=== PATIENT | female | born 1945 | race Caucasian/White ===

== ENCOUNTER → 2016-12-02 | Outpatient (CLI) | payer MEDICARE, BC | END | disposition home or self-care (01) | LOC: MMGSC 13:28 | PROVIDERS: ATTEND Family Medicine | DX: N39.0 Urinary tract infection, site not specified (principal) | CPT/HCPCS: 87077; 87086; 87186; 99214 ==

== ENCOUNTER → 2017-12-09 | Outpatient (CLI) | payer MEDICARE, BC ==
--- NOTE | 2017-12-16 20:23 | ENG ---
ELECTRONYSTAGMOGRAM REPORT VIDEO-ASSISTED ELECTRONYSTAGMOGRAM: VNG INDICATIONS: Dizziness and vertigo beginning September 24, sudden onset, getting worse, and comes in spells for 1 to 4 hours 2 to 3 times a month. Dizziness can be precipitated by rolling over in bed, right or left, going from lying to a seated position, turning head left or right, bending over or head down position, moving the head. The patient denies any hearing loss, tinnitus, pain, fullness or pressure in the ears. VNG FINDINGS: Saccades shows intact peak velocities, accuracies and latencies. Gaze with fixation shows no nystagmus in any of the directions of gaze, including centrally with vision denied. Tracking shows mild breakups. Optokinetic nystagmus shows no significant asymmetry of more than 50%. Static position testing in 4 different positions with both eyes opened and with vision denied shows no nystagmus. Right side and left side could not be done due to low back problems. Migdalia-Hallpike maneuvers could not be done due to the low back problems. Caloric testing shows 11% unilateral caloric weakness in the left ear, which is within normal limits. VNG IMPRESSION: This VNG shows mild breakups in tracking which may favor central nervous system dysfunction. Other parameters of this test are within normal limits. No evidence for vestibulopathy. MMODL / IJN: [id number] /
== END | disposition home or self-care (01) ==
LOC: NEUROMAIN 09:01
PROVIDERS: ATTEND Otolaryngology
DX: R93.8 Abnormal findings on diagnostic imaging of other specified body structures (principal); R42 Dizziness and giddiness
CPT/HCPCS: 92537; 92540

== ENCOUNTER → 2017-12-22 | Outpatient (CLI) | payer MEDICARE, BC | END | disposition home or self-care (01) | LOC: MMGSC 16:35 | PROVIDERS: ATTEND Family Medicine | DX: N39.0 Urinary tract infection, site not specified (principal) | CPT/HCPCS: 87077; 87086; 87186 ==

== ENCOUNTER → 2017-12-28 | Outpatient (CLI) | payer MEDICARE, BC ==
--- NOTE | 2017-12-29 01:23 | MR ---
EXAMINATION TYPE: MR brain wo/w con DATE OF EXAM: 12/28/2017 COMPARISON: NONE HISTORY: Vertigo, dysarthria TECHNIQUE: Multiplanar, multisequence images of the brain and brainstem is performed without and with IV contras t, utilizing 7 mL intravenous Gadavist . FINDINGS: There is mild diffuse cerebral cortical atrophy. There is no mass effect nor midline shift. There is no sign of intracranial hemorrhage. Brainstem is intact. There are a few scattered high sig nal foci in both hemispheres at the florian-white matter junction. These measure up to 5 mm. Total numbe r is approximately 5. Ventricles of normal size. The corpus callosum is intact. Sella turcica appears normal. The contrast images show no pathologic enhancement. There is no evidence of a cortical infar ct. IMPRESSION: Mild atrophy. Scattered white matter high signal foci are nonspecific and could relate to chronic small vessel ischemia. No evidence of cortical infarct.
== END | disposition home or self-care (01) ==
LOC: RADMRIMAIN 19:59
PROVIDERS: ATTEND Otolaryngology
DX: G31.1 Senile degeneration of brain, not elsewhere classified (principal); R93.0 Abnormal findings on diagnostic imaging of skull and head, not elsewhere classified
CPT/HCPCS: 70553; A9581

== ENCOUNTER → 2017-12-28 | Outpatient (CLI) | payer MEDICARE, BC | END | disposition home or self-care (01) | LOC: LABWHC1 11:54 | PROVIDERS: ATTEND Otolaryngology | DX: R42 Dizziness and giddiness (principal); G45.9 Transient cerebral ischemic attack, unspecified | CPT/HCPCS: 36415; 82565 ==

== ENCOUNTER → 2018-03-15 | Outpatient (CLI) | payer MEDICARE, BC ==
[2018-03-15 11:55] LABS: HCT 42.4 % (34.0-46.0); HGB 14.9 gm/dL (11.4-16.0); MCH 33.7 pg (25.0-35.0); MCHC 35.1 g/dL (31.0-37.0); Mean Platelet Volume 6.9; Platelet Count 267 k/uL (150-450); RBC 4.41 m/uL (3.80-5.40); RDW 12.4 % (11.5-15.5); WBC 4.5 k/uL (3.8-10.6)
[2018-03-15 12:05] LABS: Albumin 4.1 g/dL (3.5-5.0); Potassium 5.3 mmol/L (3.5-5.1); Total Bilirubin 0.7 mg/dL (0.2-1.3); Total Protein 6.4 g/dL (6.3-8.2)
--- NOTE | 2018-03-15 14:24 | BD ---
EXAMINATION TYPE: Axial Bone Density DATE OF EXAM: 03/15/2018 COMPARISON: 2014 CLINICAL HISTORY: post menopausal. Osteoporosis screening. Height: 5'2 Weight: 158 FRAX RISK QUESTIONS: Secondary Osteoporosis: RISK FACTORS HISTORY OF: Postmenopausal woman: y MEDICATIONS: Additional Medications: Additional History: EXAM MEASUREMENTS: Bone mineral densitometry was performed using the [employer] System. Bone mineral density as measured about the Lumbar spine is: ----- L1-L4(G/cm2): 1.295 T Score Values are as follows: ----- L2: 0.0 ----- L3: 0.7 ----- L4: 2.2 ----- L1-L4: 1.0 Bone mineral density has: Decreased -0.4% since study of: 09/18/2014 Bone mineral density about the R hip (g/cm2): 0.938 Bone mineral density about the L hip (g/cm2): 0.896 T Score values are as follows: -----R Neck: -0.7 -----L Neck: -1.1 -----R Total: 0.7 -----L Total: -0.2 Bone mineral density has: Decreased -4.0% since study of: 09/08/2014 IMPRESSION: Osteopenia (T Score between -2.5 and -1) with regards to the left femur. There is slightly increased risk of fracture and the patient may be considered for treatment. Re-Screen 2-5 years. NOTE: T-SCORE=SD OF THE YOUNG ADULT MEAN.
[2018-03-15 17:23] LABS: Iron Saturation 42.66 (12.00-45.00)
[2018-03-15 17:34] LABS: Vitamin D 25 Hydroxy 25.2 ng/mL (30.0-100.0)
--- NOTE | 2018-03-16 14:03 | MM ---
Reason for exam: screening (asymptomatic). Last mammogram was performed 1 year and 10 months ago. History: Patient is postmenopausal. Cyst aspiration of the left breast. Physical Findings: A clinical breast exam by your physician is recommended on an annual basis and results should be correlated with mammographic findings. MG Screening Mammo w CAD Bilateral CC and MLO view(s) were taken. Prior study comparison: May 07, 2016, bilateral MG 3d screening mammo w/cad. September 18, 2014, bilateral MG screening mammo w CAD. There are scattered fibroglandular densities. Finding: There are typically benign round calcifications in both breasts. There is no discrete abnormality. ASSESSMENT: Benign, BI-RAD 2 RECOMMENDATION: Routine screening mammogram of both breasts in 1 year.
== END | disposition home or self-care (01) ==
LOC: RADMAMWWP 10:49
PROVIDERS: ATTEND Family Medicine
DX: Z12.31 Encounter for screening mammogram for malignant neoplasm of breast (principal); M85.852 Other specified disorders of bone density and structure, left thigh; Z00.00 Encounter for general adult medical examination without abnormal findings; R53.83 Other fatigue; Z78.0 Asymptomatic menopausal state
CPT/HCPCS: 77067; 77080; 80053; 80061; 82306; 82607; 82728; 83540; 83550; 84443; 85027

== ENCOUNTER → 2018-03-19 | Outpatient (CLI) | payer MEDICARE, BC | END | disposition home or self-care (01) | LOC: LABWHC1 10:24 | PROVIDERS: ATTEND Family Medicine | DX: E87.5 Hyperkalemia (principal) | CPT/HCPCS: 36415; 84132 ==

== ENCOUNTER → 2021-05-23 | Outpatient (CLI) | payer MEDICARE, BC ==
--- NOTE | 2021-05-24 12:32 | MM ---
Reason for exam: screening (asymptomatic). Last mammogram was performed 3 years and 2 months ago. History: Patient is postmenopausal. Cyst aspiration of the left breast. Taking estrogen beginning at age 74. Physical Findings: A clinical breast exam by your physician is recommended on an annual basis and results should be correlated with mammographic findings. MG 3D Screening Mammo W/Cad Bilateral CC and MLO view(s) were taken. Prior study comparison: March 15, 2018, bilateral MG screening mammo w CAD. May 07, 2016, bilateral MG 3d screening mammo w/cad. There are scattered fibroglandular densities. Finding: There is an equal density (isodense), circumscribed lobulated mass in the upper outer quadrant, middle position of the right breast. New finding since March 15, 2018 and May 07, 2016. ASSESSMENT: Incomplete: need additional imaging evaluation, BI-RAD 0 RECOMMENDATION: Special view mammogram of the right breast. If lesion persists on supplemental views, image directed ultrasound is recommended. [facility] will attempt to contact patient to return for supplemental views and ultrasound if indicated.
== END | disposition home or self-care (01) ==
LOC: RADMAMWWP 13:58
PROVIDERS: ATTEND Family Medicine
DX: Z12.31 Encounter for screening mammogram for malignant neoplasm of breast (principal); Z79.818 Long term (current) use of other agents affecting estrogen receptors and estrogen levels
CPT/HCPCS: 77063; 77067

== ENCOUNTER → 2021-06-12 | Outpatient (CLI) | payer MEDICARE, BC ==
--- NOTE | 2021-06-13 11:34 | MM ---
Reason for exam: additional evaluation requested from abnormal screening. Last mammogram was performed 1 month ago. History: Patient is postmenopausal. Cyst aspiration of the left breast. Taking estrogen beginning at age 74. Physical Findings: Nurse did not find any significant physical abnormalities on exam. MG 3D Work Up W/Cad RT Spot compression CC, spot compression MLO, and ML view(s) were taken of the right breast. Prior study comparison: May 23, 2021, bilateral MG 3d screening mammo w/cad. March 15, 2018, bilateral MG screening mammo w CAD. There are scattered fibroglandular densities. Finding: There is an intermediate concern, suspicious 4 mm equal density (isodense), circumscribed lobulated mass located 8 cm from the nipple in the upper outer quadrant, middle position of the right breast. New finding since May 23, 2021 and March 15, 2018. These results were verbally communicated with the patient and result sheet given to the patient on 06/12/21. ASSESSMENT: Incomplete: need additional imaging evaluation, BI-RAD 0 RECOMMENDATION: Ultrasound of the right breast.
--- NOTE | 2021-06-13 11:38 | USB ---
Reason for exam: additional evaluation requested from abnormal screening. History: Patient is postmenopausal. Cyst aspiration of the left breast. Taking estrogen beginning at age 74. US Breast Workup Limited RT Technologist: Molly López Right limited breast ultrasound including focal area of concern, retroareolar and axilla demonstrates a 0.9 x 0.4 x 0.4cm lesion at 9 o'clock biopsy recommended and a 0.7 x 0.5 x 0.4cm lymph node at 9 o'clock. These results were verbally communicated with the patient and result sheet given to the patient on 06/12/21. ASSESSMENT: Suspicious, BI-RAD 4 RECOMMENDATION: Ultrasound core biopsy of the right breast. Patient undecided on surgeon or plan of care. Information provided and patient to call to scheduled when decided. Patient is also traveling out of state for the next several week. PRELIMINARY REPORT CALLED AND FAXED TO DR. FORD ON 06/13/21.
== END | disposition home or self-care (01) ==
LOC: RADMAMWWP 13:55
PROVIDERS: ATTEND Family Medicine
DX: N63.11 Unspecified lump in the right breast, upper outer quadrant (principal)
CPT/HCPCS: 77065; 76642; G0279; 77061

== ENCOUNTER → 2021-08-08 | Day surgery (SDC) | payer MEDICARE, BC ==
[2021-08-08 12:07] VITALS: RESP 16
[2021-08-08 13:20] VITALS: BP 115/69; PULSE 78; TEMP 97.8
--- NOTE | 2021-08-08 13:35 | USB ---
EXAMINATION TYPE: US biopsy breast VAD RT, MG diagnostic mammo RT wo CAD DATE OF EXAM: 08/08/2021 CLINICAL HISTORY: R92.8 ABN MAMMO. TECHNIQUE: Ultrasound guided core biopsy of right 9:00 breast. COMPARISON: NONE FINDINGS: The procedure of ultrasound guided core biopsy was explained to the patient. Benefits, alt ernatives, and risks were discussed. An informed consent was then obtained. The patient was placed in supine positioning for imaging and for the procedure. The overlying skin w as prepped and draped in usual sterile fashion. Lidocaine buffered with bicarbonate was used as anes thetic into the skin and subcutaneous tissue up to area of concern in the right 9:00 breast. Under ultrasound guidance, a 12-gauge vacuum assisted biopsy gun device was used to obtain [address]. Following this, a biopsy clip was left in lesion. Postprocedural mammogram was obtained and d emonstrates appropriate clip deployment. The patient tolerated the procedure well without any immediate complication. The patient was kept in the radiology department for short stay after the procedure and then discharged home in stable condi tion. IMPRESSION: Successful, uncomplicated ultrasound guided core biopsy of area of concern in the right 9 :00 breast, full pathology results to follow.
== END ==
LOC: RADUSWWP 10:41
PROVIDERS: ATTEND Surgery
DX: C50.811 Malignant neoplasm of overlapping sites of right female breast (principal)
CPT/HCPCS: 77065; 19083; A4648; J2001; 88305; 88341; 88342

== ENCOUNTER → 2021-08-08 | Outpatient (CLI) | payer MEDICARE, BC ==
[2021-08-08 11:09] VITALS: BP 111/66; PULSE 80; RESP 18; TEMP 98.5
--- NOTE | 2021-08-08 11:38 | P.GSHP ---
History of Present Illness H&P Date: 08/08/21 Chief Complaint: Abnormal right breast mammogram and ultrasound Angelina is a 75-year-old white female who underwent a bilateral mammogram and 05/23/2021. This revealed a lobulated mass in the upper quadrant of the right breast. Additional views of the right breast were performed on . She subsequently underwent a right breast ultrasound which revealed a 0.9 x 0.4 cm lesion at 9:00 biopsy recommended and a 0.7 x 0.4 cm lymph node at 9:00. The recommendation was for the patient undergo an ultrasound-guided core biopsy of the right breast. She does not feel anything of concern in either breast. She has not had any biopsies or surgery on either breast. Does not have any nipple discharge or skin changes of concern. She has not had any recent trauma or infection in the breast. Nicotine: social smoker/ stopped years ago caffeine: 2 cups coffee/day chocolate: occasional Family history: none Hormonal history: Menarche: 8 M1, breast fed: yes, age at first : 20 menopause: 54 BCP: 1 year hormones: vaginal hormone cream< 1 year (used because of chronic UTI) Surgical History: tonsil/adenoid Abdominoplasty Medical history: chronic bladder infections Seasonal depression Social History: Nicotine: Negative Alcohol: Occasional Drugs: Negative - Constitutional Constitutional: Denies chills, Denies fever - EENT Eyes: denies blurred vision, denies pain Ears: deny: decreased hearing, tinnitus Ears, nose, mouth and throat: Denies headache, Denies sore throat - Breasts Breasts: bilateral: as per HPI - Cardiovascular Cardiovascular: Reports shortness of breath, Denies chest pain - Respiratory Respiratory: Denies cough, Denies 7 - Gastrointestinal Gastrointestinal: Denies abdominal pain, Denies diarrhea, Denies nausea, Denies vomiting - Genitourinary (Female) Genitourinary: Reports as per HPI - Menstruation Menstruation: Reports postmenopausal - Musculoskeletal Comment: Peripheral neuropathy - Integumentary Integumentary: Denies pruritus, Denies rash - Neurological Neurological: Denies numbness, Denies weakness - Psychiatric Psychiatric: Reports as per HPI, Reports depression - Endocrine Endocrine: Denies fatigue, Denies weight change - Hematologic/Lymphatic Comment: none - Allergic/Immunologic Comment: aspirin Past Medical History History of Any Multi-Drug Resistant Organisms: ESBL Date of last positivie culture/infection: 02/09/20 MDRO Source:: ESBL URINE Smoking Status: Never smoker Medications and Allergies Home Medications Medication Instructions Recorded Confirmed Type Ascorbic Acid [Vitamin C] 500 mg PO DAILY 08/08/21 08/08/21 History Cholecalciferol [Vitamin D3 (25 25 mcg PO DAILY 08/08/21 08/08/21 History Mcg = 1000 Iu)] Clobetasol Propionate/Emoll 1 applic TOPICAL DAILY PRN 08/08/21 08/08/21 History [Clobetasol Emulsion 0.05% Foam] Cyanocobalamin (Vitamin B-12) 1,000 mcg PO DAILY 08/08/21 08/08/21 History [Vitamin B-12] Estradiol Cream [Estrace Cream 0.05 gm VAGINAL Q7DAYS 08/08/21 08/08/21 History 0.01%] Ibuprofen 800 mg PO Q8H PRN 08/08/21 08/08/21 History Mirabegron [Myrbetriq] 25 mg PO DAILY 08/08/21 08/08/21 History Sertraline [Zoloft] 50 mg PO DAILY 08/08/21 08/08/21 History Trimethoprim [Trimpex] 100 mg PO DAILY 08/08/21 08/08/21 History Allergies Allergy/AdvReac Type Severity Reaction Status Date / Time aspirin Allergy Unknown Verified 06/12/21 14:51 Surgical - Exam Vital Signs Temp Pulse Resp BP Pulse Ox 98.5 F 80 18 111/66 98 08/08/21 11:06 08/08/21 11:06 08/08/21 11:06 08/08/21 11:06 08/08/21 11:06 BMI 29.6 - General no distress - Eyes normal ocular movement - ENT no hearing loss, no congestion - Neck trachea midline - Respiratory normal respiratory effort, clear to auscultation - Cardiovascular Rhythm: regular Heart Sounds: normal: S1, S2 - Abdomen Abdomen: soft - Integumentary normal turgor - Neurologic no disoriented, no combative - Musculoskeletal normal gait, normal posture - Psychiatric oriented to time, oriented to person, oriented to place, speech is normal, memory intact Breast Exam: BRA: 40C Inspection: bilateral grade 2 ptosis palpation: right breast: Multi-positional exam fibrocystic changes, no dominant masses or nodules of concern Right axilla: No adenopathy of concern Left breast: Multi-positional exam fibrocystic changes no dominant masses or nodules of concern Left axilla: No adenopathy of concern Results Mammogram and ultrasound reviewed with Dr. Griffith Assessment and Plan Assessment: Impression: 1. Abnormal right breast mammogram and ultrasound 2. Fibrocystic breast changes 3. Patient has been taking ibuprofen 800 stopped one day ago Plan: 1. Right breast ultrasound-guided core biopsy, I discussed with Dr. Griffith that the patient has been taking ibuprofen and he feels comfortable to proceed Risks: Risks include but are not limited to bleeding, infection, reaction to the anesthetic. The patient understand she is at increased risk for hematoma or bruising secondary to the ibuprofen and wishes to proceed. 2. Follow up next week for results CC: DR. Mcclelland
== END ==
LOC: WWCWWP 10:39
PROVIDERS: ATTEND Surgery
DX: N60.11 Diffuse cystic mastopathy of right breast (principal); F32.A Depression, unspecified; Z79.899 Other long term (current) drug therapy; Z88.6 Allergy status to analgesic agent; Z87.891 Personal history of nicotine dependence

== ENCOUNTER → 2021-08-15 | Outpatient (CLI) | payer MEDICARE, BC ==
[2021-08-15 11:29] VITALS: BP 128/75; PULSE 64; RESP 18; TEMP 98.3
--- NOTE | 2021-08-15 12:03 | P.PN ---
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 The lesion was 9mm in size. She tolerated the procedure without difficulty. Objective - Vital Signs Vital signs: Vital Signs Temp 98.3 F 08/15/21 11:27 Pulse 64 08/15/21 11:27 Resp 18 08/15/21 11:27 BP 128/75 08/15/21 11:27 Pulse Ox 96 08/15/21 11:27 Intake & Output 08/14/21 08/15/21 08/15/21 18:59 06:59 18:59 Weight 72.121 kg - Constitutional General appearance: Present: cooperative - EENT Eyes: Present: EOMI ENT: Present: hearing grossly normal - Neck Neck: Present: normal ROM - Respiratory Respiratory: bilateral: CTA - Cardiovascular Rhythm: regular Heart sounds: normal: S1, S2 - Gastrointestinal General gastrointestinal: Present: soft - Integumentary Integumentary Comment(s): Small nodule right posterior back approximately 1 cm in size subcutaneous tissue may be a sebaceous cyst Biopsy site right breast clean and dry mild ecchymosis no evidence of infection Assessment and Plan Assessment: Impression: 1. right breast invasive ductal cancer stage IA Plan: 1. will hold estrogen cream 2. breast MRI 3. present case at tumor board 4. appointment with radiation and medical oncology CC: Dr. [place]
== END | disposition home or self-care (01) ==
LOC: WWCWWP 11:17
PROVIDERS: ATTEND Surgery
DX: Z53.9 Procedure and treatment not carried out, unspecified reason (principal)

== ENCOUNTER → 2022-04-01 | Outpatient (CLI) | payer MEDICARE, BC ==
--- NOTE | 2022-04-01 13:27 | BD ---
EXAMINATION TYPE: Axial Bone Density DATE OF EXAM: 04/01/2022 COMPARISON: 03/15/2018 CLINICAL HISTORY: 76 years year old Female. ICD-10 CODE: Z79.890 Post menopausal w/HRT Height: 61 IN Weight: 156 LBS RISK FACTORS HISTORY OF: Active: YES Postmenopausal woman: AGE 55 Take estrogen and/or progesterone medications: 4 MONTHS MEDICATIONS: Additional Medications: ZOLOFT, IBUPROFEN, MYRBETRIQ, ESTRADIOL, ANASTROZOLE, ZINC, VIT C, VIT D Additional History: BREAST CANCER EXAM MEASUREMENTS: Bone mineral densitometry was performed using the [employer] System. Bone mineral density as measured about the Lumbar spine is: ----- L1-L4(G/cm2): 1.263 T Score Values are as follows: ----- L1: -0.7 ----- L2: -0.4 ----- L3: 1.6 ----- L4: 1.7 ----- L1-L4: 0.7 Bone mineral density has: Decreased -1.6% since study of: 03/15/2018 Bone mineral density about the R hip (g/cm2): 0.866 Bone mineral density about the L hip (g/cm2): 0.816 T Score values are as follows: -----R Neck: -1.2 -----L Neck: -1.6 -----R Total: 0.5 -----L Total: -0.5 Bone mineral density has: Decreased -3.5% since study of: 03/15/2018 FRAX%s: The graph provided illustrates a 12.4 chance for a major osteoporotic fx and a 2.8 chance for the hips probability for fx in 10 years time. IMPRESSION: Normal (Values between +1 and -1 indicate normal bone mass). Consider repeating this study in 5 year s or sooner if there is some new clinical indication. NOTE: T-SCORE=SD OF THE YOUNG ADULT MEAN.
== END | disposition home or self-care (01) ==
LOC: RADBDWWP 12:07
PROVIDERS: ATTEND Internal Medicine Hematology & Oncology
DX: Z79.890 Hormone replacement therapy (principal); Z78.0 Asymptomatic menopausal state
CPT/HCPCS: 77080